=== PATIENT | male | born 1965 | race Caucasian/White ===

== ENCOUNTER → 2020-07-11 | Outpatient (CLI) | payer BC, OTHER ==
[~2020-07-11] MED LIST: ACETAMINOPHEN650 M2 PO; ASPIR 8181 MG PO; ATORVASTATIN CA20 MG PO; BRILINTA 90 MG90 MG PO; CLOPIDOGREL75 MG PO; ELIQUIS 5 MG TAB5 MG PO; ELIQUIS5 M1 PO; FUROSEMIDE40 MG PO; HYDROCODON-ACE1 EAC4 PO; IMDUR ER TAB 3030 MG PO; KLOR-CON 1010 MEQ PO; LEVOFLOXACIN750 MG PO; LIPITOR TAB 2020 MG PO; TOPROL XL25 MG PO; ZESTRIL2.5 MG PO
[2020-07-11 10:28] LABS: HEMOGLOBIN 16.1 gm/dl (14.0-17.5); RED BLOOD COUNT 4.94 M/UL (4.20-5.50); WHITE BLOOD COUNT 8.5 K/UL (4.5-11.0)
[2020-07-11 10:38] LABS: BUN/CREATININE RATIO 14 (0-10)
== END ==
LOC: LAB 09:58
PROVIDERS: Internal Medicine Cardiovascular Disease
DX: I50.22 Chronic systolic (congestive) heart failure (principal); I25.5 Ischemic cardiomyopathy; R06.02 Shortness of breath; I10 Essential (primary) hypertension; J98.11 Atelectasis
CPT/HCPCS: 36415; 71046; 80048; 85025

== ENCOUNTER 2020-07-15 07:51 | Outpatient (CLI) | payer BC, OTHER ==
[~2020-07-15] VITALS: Ht 165.1 cm; Wt 81.6 kg
[~2020-07-15 07:51] MED LIST changes: -ACETAMINOPHEN650 M2 PO; -ELIQUIS 5 MG TAB5 MG PO; -ELIQUIS5 M1 PO; -HYDROCODON-ACE1 EAC4 PO; -LEVOFLOXACIN750 MG PO
[2020-07-15] MEDS ORDERED: FUROSEMIDE40 MG PO (08:58)
[2020-07-15] MEDS ORDERED: LEVOFLOXACIN750 MG PO (11:08)
[2020-07-15] MEDS ORDERED: HYDROCODON-ACE1 EAC4 PO (11:08)
[2020-07-17] MEDS ORDERED: ACETAMINOPHEN650 M2 PO (02:30)
[2020-07-17] MEDS ORDERED: ELIQUIS 5 MG TAB5 MG PO (16:09)
[2020-07-17] MEDS ORDERED: ELIQUIS5 M1 PO (16:09)
[2020-07-17] MEDS ORDERED: FUROSEMIDE40 MG PO (16:09)
== END 2020-07-16 11:33 | disposition home or self-care (01) ==
LOC: CATH 07:51 → PROG CARE 14:23 → CATH 07-16 11:33
DX: I25.119 Atherosclerotic heart disease of native coronary artery with unspecified angina pectoris (principal); I11.0 Hypertensive heart disease with heart failure; I50.22 Chronic systolic (congestive) heart failure; I25.2 Old myocardial infarction; I25.5 Ischemic cardiomyopathy; I42.0 Dilated cardiomyopathy; E78.5 Hyperlipidemia, unspecified; I82.409 Acute embolism and thrombosis of unspecified deep veins of unspecified lower extremity; Z98.61 Coronary angioplasty status; Z79.899 Other long term (current) drug therapy; Z79.82 Long term (current) use of aspirin; Z83.3 Family history of diabetes mellitus; Z82.49 Family history of ischemic heart disease and other diseases of the circulatory system; Z82.5 Family history of asthma and other chronic lower respiratory diseases; Z81.8 Family history of other mental and behavioral disorders; Z87.891 Personal history of nicotine dependence
CPT/HCPCS: 33249; 71045; 93005; 93641; 99152; 99153; C1721; C1777; C1898; J1200; J1644; J2250; J3010; J3370; J7040; J7050; J7070

== ENCOUNTER 2020-07-16 21:07 | Observation (INO) | payer BC, OTHER ==
[~2020-07-16] VITALS: Ht 165.1 cm; Wt 78.5 kg
[~2020-07-16 21:07] MED LIST changes: +HYDROCODON-ACE1 EAC4 PO; +LEVOFLOXACIN750 MG PO
[2020-07-16 22:34] LABS: HEMOGLOBIN 15.6 gm/dl (14.0-17.5); RED BLOOD COUNT 4.85 M/UL (4.20-5.50); WHITE BLOOD COUNT 11.9 K/UL (4.5-11.0)
[2020-07-16 23:05] LABS: BUN/CREATININE RATIO 14 (0-10)
[2020-07-17] MEDS ORDERED: ACETAMINOPHEN650 M2 PO (02:30)
[2020-07-17] MEDS ORDERED: ELIQUIS5 M1 PO (16:09)
[2020-07-17] MEDS ORDERED: FUROSEMIDE40 MG PO (16:09)
[2020-07-17] MEDS ORDERED: ELIQUIS 5 MG TAB5 MG PO (16:09)
== END 2020-07-17 17:55 | disposition home or self-care (01) ==
LOC: ER1 21:07 → M/S 07-17 00:25 → CDU 07-17 00:25 → M/S 07-17 02:05
PROVIDERS: Physician Assistant; ADMIT Internal Medicine
DX: I26.99 Other pulmonary embolism without acute cor pulmonale (principal); I25.10 Atherosclerotic heart disease of native coronary artery without angina pectoris; I50.22 Chronic systolic (congestive) heart failure; Z87.891 Personal history of nicotine dependence; Z82.49 Family history of ischemic heart disease and other diseases of the circulatory system; Z98.61 Coronary angioplasty status; Z79.899 Other long term (current) drug therapy; Z20.822 Contact with and (suspected) exposure to COVID-19
CPT/HCPCS: 36415; 71045; 80053; 82550; 82553; 83874; 83880; 84484; 85025; 93005; 93970; 96372; 99285; G0378; J1650; Q9967; U0002